=== PATIENT | female | born 1950 | race African-American/Black ===

== ENCOUNTER 2021-10-07 16:56 | Emergency (ER) | payer OTHER ==
[~2021-10-07] VITALS: Ht 157.5 cm; Wt 59.0 kg
[2021-10-07 17:08] VITALS: BP 160/84
[2021-10-07] MEDS ORDERED: ONDANSETRON HCL 4MG/2ML INJ IV STA (17:15)
[2021-10-07] MEDS ORDERED: MORPHINE SULFATE 4 MG/ML CPJ (NOT FOR IM USE) IV STA (17:15)
== END 2021-10-07 17:27 | disposition left against medical advice (07) ==
LOC: ER 16:56 → EDBD 16:56 → ER 17:27
DX: R10.31 Right lower quadrant pain (principal); E11.9 Type 2 diabetes mellitus without complications; I10 Essential (primary) hypertension; Z88.2 Allergy status to sulfonamides
CPT/HCPCS: 99283